=== PATIENT | male | born 1985 | race African-American/Black ===

== ENCOUNTER 2018-11-01 09:09 | Emergency (ER) | payer MEDICAID, OTHER ==
[~2018-11-01] VITALS: Ht 175.3 cm; Wt 95.0 kg
[2018-11-01 12:44] VITALS: BP 128/84
== END 2018-11-01 12:45 | disposition home or self-care (01) ==
LOC: ER 09:09
DX: L30.9 Dermatitis, unspecified (principal)
CPT/HCPCS: 99281

== ENCOUNTER 2019-02-12 03:37 | Emergency (ER) | payer MEDICAID ==
[~2019-02-12] VITALS: Ht 188 cm; Wt 96.0 kg
[2019-02-12 03:47] VITALS: BP 136/95
== END 2019-02-12 07:54 | disposition left against medical advice (07) ==
LOC: ER 03:37
DX: M79.81 Nontraumatic hematoma of soft tissue (principal); Z53.21 Procedure and treatment not carried out due to patient leaving prior to being seen by health care provider